=== PATIENT | female | born 1965 | race Caucasian/White ===

== ENCOUNTER 2016-10-21 10:40 | Outpatient (CLI) | payer BC | END 2016-10-21 10:41 | disposition home or self-care (01) | LOC: SC 10:40 | PROVIDERS: ATTEND Nurse Practitioner Family | DX: R06.83 Snoring (principal); R09.89 Other specified symptoms and signs involving the circulatory and respiratory systems; G47.8 Other sleep disorders; R06.81 Apnea, not elsewhere classified; G31.84 Mild cognitive impairment of uncertain or unknown etiology | CPT/HCPCS: 99205; 99212 ==

== ENCOUNTER 2016-11-24 19:36 | Outpatient (CLI) | payer BC | END 2016-11-24 19:37 | disposition home or self-care (01) | LOC: SC 19:36 | PROVIDERS: ATTEND Internal Medicine Pulmonary Disease | DX: G47.9 Sleep disorder, unspecified (principal); R06.81 Apnea, not elsewhere classified; R06.83 Snoring; G47.10 Hypersomnia, unspecified; G47.62 Sleep related leg cramps; R53.83 Other fatigue; G47.00 Insomnia, unspecified | CPT/HCPCS: 95810 ==

== ENCOUNTER 2016-12-28 09:17 | Outpatient (CLI) | payer BC | END 2016-12-28 09:18 | disposition home or self-care (01) | LOC: SC 09:17 | PROVIDERS: ATTEND Nurse Practitioner Family | DX: R06.83 Snoring (principal) | CPT/HCPCS: 99212; 99214 ==

== ENCOUNTER 2020-01-31 13:14 | Outpatient (CLI) | payer BC ==
--- NOTE | 2020-02-02 16:03 | Mammography Report ---
BILATERAL DIGITAL SCREENING MAMMOGRAM 3D/2D: 01/31/2020 CLINICAL: Routine screening. Comparison is made to exams dated: 01/28/2016 mammogram, 12/18/2014 mammogram, and 12/08/2012 mammogra m - [facility]. The tissue of both breasts is heterogeneously dense. This may lowe r the sensitivity of mammography. No significant masses, calcifications, or other findings are seen in either breast. There has been no significant interval change. IMPRESSION: NEGATIVE There is no mammographic evidence of malignancy. A 1 year screening mammogram is recommended. This exam was interpreted at Station ID: [id number]. NOTE: For mammograms, a report in lay terms will be sent to the patient. Approximately 15% of breast malignancies will not be visualized mammographically. In the management of a palpable breast mass, a negative mammogram must not discourage biopsy of a clinically suspicious lesion. Electronically Signed By: Luis A Alvarez M.D. ar/penrad:01/31/2020 14:42:55 ACR BI-RADS Category 1: Negative 3341F PARENCHYMAL PATTERN: (D) - The breast(s) demonstrate(s) heterogeneously dense fibroglandular nikko boland. BI-RADS CATEGORY: (1) - 1 RECOMMENDATION: (ANNUAL) - Recommend routine annual screening mammography. [id number] 1 year screening LATERALITY: (B)
== END 2020-01-31 13:15 | disposition home or self-care (01) ==
LOC: DI 13:14
PROVIDERS: ATTEND Family Medicine
DX: Z12.31 Encounter for screening mammogram for malignant neoplasm of breast (principal)
CPT/HCPCS: 77063; 77067

== ENCOUNTER 2020-01-31 13:19 | Outpatient (CLI) | payer BC ==
--- NOTE | 2020-01-31 16:10 | DEXA Report ---
PROCEDURE: Dexa Spine and/or Hip INDICATIONS: POSTMENOPAUSAL, SCREENING FOR OSTEOPOROSIS TECHNIQUE: Dual energy x-ray absorptiometry (DXA) was performed on a [employer] System. Regions measur ed are the AP Spine, femoral neck, and if needed forearm. COMPARISON: None. FINDINGS: Lumbar Spine: Bone Mineral Density 0.925 g/cm/cm,T score -2.1, moderate to severe osteopenia Left Hip: Bone Mineral Density 0.677 g/cm/cm,T score -2.6, mild osteoporosis Left Femoral Neck: Bone Mineral Density 0.664 g/cm/cm, T score -2.7, mild osteoporosis (T score greater or equal to -1.0: NORMAL) (T score from -1.1 to -2.4: OSTEOPENIA) (T score less than or equal to -2.5 to: OSTEOPOROSIS) Impression: Mild osteoporosis within the left hip and femoral neck. Patients with diagnosis of osteoporosis or osteopenia should have regular bone mineral density assess ment. For those eligible for Medicare, routine testing is allowed once every 2 years. Testing frequ ency can be increased for patients who have rapidly progressing disease or for those who are receivin g medical therapy to restore bone mass. Reviewed by: Loida Sin MD on 01/31/2020 4:09 PM PST Approved by: Loida Sin MD on 01/31/2020 4:09 PM PST Station ID: [id number]
== END 2020-01-31 13:20 | disposition home or self-care (01) ==
LOC: DI 13:19
PROVIDERS: ATTEND Family Medicine
DX: Z13.820 Encounter for screening for osteoporosis (principal); M81.0 Age-related osteoporosis without current pathological fracture
CPT/HCPCS: 77080

== ENCOUNTER 2022-12-28 09:11 | Outpatient (CLI) | payer BC | END 2022-12-28 23:59 | disposition short-term general hospital (02) | LOC: EMS 09:11 | DX: R20.8 Other disturbances of skin sensation (principal); R42 Dizziness and giddiness; I10 Essential (primary) hypertension | CPT/HCPCS: A0425; A0429 ==